=== PATIENT | female | born 1950 | race Caucasian/White ===

== ENCOUNTER 2016-11-11 20:02 | Emergency (ER) | payer MEDICARE, MEDICAID ==
[~2016-11-11] VITALS: Ht 157.5 cm; Wt 77.3 kg
[~2016-11-11 20:02] MED LIST: ASPIRIN 81M81 MG/TA2 PO; B-121000 MCG PO; BENADRYL25 M2 PO; BENTYL 10MG10 MG/CAP PO; BUSPAR10 MG PO; CEFTIN 250250 MG/TAB PO; COREG 3.123.125 MG/T PO; COUMADIN 1010 MG/TAB PO; COUMADIN 5MG5 MG/TAB PO; FLOMAX 0.40.4 MG/CAP PO; IBU800 M1 PO; IPRATROPIUM BROM3 M1 IH; MULTI VITAMINS1 TAB PO; MULTIPLE VITAMI1 TA5 PO; NICODERM C14 MG/PATC TD; NORCO 325 MG-51 TAB PO; PATADAY 2.5 ML2.5 ML OU; PLAVIX 75MG TAB75 MG PO; PRINIVIL2.5 MG PO; PROTONIX 40MG T40 MG PO; PROZAC40 MG PO; SENNO8.6 MG PO; TEARS-ARTIFICIA15 ML OP; TYLENOL 325MG325 MG PO; TYLENOL 500MG500 MG PO; WELLBUTRIN XL300 M1 PO; XYZAL5 MG PO; ZITHROMAX 250M250 MG PO; ZOCOR 40MG40 MG PO; ZOFRAN 4MG T4 MG/TAB PO
[2016-11-11 20:07] VITALS: BP 143/70; PULSE 73; TEMP 97.4
[2016-11-11] MEDS ORDERED: SARAFEM20 M1 PO (20:39)
[2016-11-11] MEDS ORDERED: SENOKOT S 50 MG1 TAB PO (20:41)
== END 2016-11-11 21:15 | disposition home or self-care (01) ==
LOC: COL.ER 20:02
DX: S09.90XA Unspecified injury of head, initial encounter (principal); W07.XXXA Fall from chair, initial encounter; Z79.01 Long term (current) use of anticoagulants

== ENCOUNTER → 2016-11-17 | Outpatient (CLI) | payer MEDICARE, MEDICAID ==
[~2016-11-17] MED LIST changes: +CORRECTIVE LAXAT5 MG PO; +GERI-TUSSI100 MG/5 M PEG; +MELATONIN5 M1 SL; +SARAFEM20 M1 PO; +SENOKOT S 50 MG1 TAB PO
== END ==
LOC: ZCOL.LAB 16:52
DX: F41.1 Generalized anxiety disorder (principal)

== ENCOUNTER → 2017-04-19 | Outpatient (CLI) | payer MEDICARE, MEDICAID ==
[2017-04-19 20:20] LABS: HYALINE CAST >12 /lpf; PH 5 (5-8); URINE APPEARANCE Cloudy; URINE BACTERIA Many /hpf; URINE BILIRUBIN Negative (NEGATIVE); URINE BLOOD Negative (NEGATIVE); URINE COLOR Amber; URINE GLUCOSE Negative (NEGATIVE); URINE KETONE Trace (NEGATIVE); URINE UROBILINOGEN Negative (NEGATIVE); URINE WBC >50 /hpf
== END ==
LOC: ZCOL.LAB 19:17
PROVIDERS: Internal Medicine
DX: N39.0 Urinary tract infection, site not specified (principal)

== ENCOUNTER → 2017-04-25 | Outpatient (CLI) | payer MEDICARE, MEDICAID ==
[2017-04-25 15:24] LABS: PH 5 (5-8); SQUAMOUS EPITHELIAL 0-2 /hpf; URINE APPEARANCE Hazy; URINE BACTERIA Many /hpf; URINE BILIRUBIN Negative (NEGATIVE); URINE BLOOD Negative (NEGATIVE); URINE COLOR Amber; URINE GLUCOSE Negative (NEGATIVE); URINE KETONE Negative (NEGATIVE); URINE UROBILINOGEN Negative (NEGATIVE); URINE WBC 20-50 /hpf
== END ==
LOC: ZCOL.LAB 12:48
PROVIDERS: Internal Medicine
DX: N39.0 Urinary tract infection, site not specified (principal)

== ENCOUNTER → 2017-05-05 | Outpatient (CLI) | payer MEDICARE, MEDICAID ==
[2017-05-05 12:42] LABS: INR 2.7 (0.8-3.0); PROTHROMBIN TIME 31.5 SECONDS (9.7-12.8)
== END ==
LOC: ZCOL.LAB 12:06
PROVIDERS: Internal Medicine
DX: I48.2 Chronic atrial fibrillation (principal)

== ENCOUNTER 2017-05-11 17:46 | Emergency (ER) | payer MEDICARE, MEDICAID ==
[~2017-05-11] VITALS: Ht 160 cm; Wt 79.5 kg
[~2017-05-11 17:46] MED LIST changes: -CORRECTIVE LAXAT5 MG PO; -GERI-TUSSI100 MG/5 M PEG; -MELATONIN5 M1 SL
[2017-05-11 17:49] VITALS: TEMP 99.1
[2017-05-11 18:26] LABS: HEMATOCRIT 38.3 % (37.0-47.0); HEMOGLOBIN 12.5 g/dl (12.5-16.0)
[2017-05-11 18:29] LABS: INR 2.3 (0.8-3.0); PROTHROMBIN TIME 26.1 SECONDS (9.7-12.8)
[2017-05-11 18:31] LABS: PARTIAL THROMBOPLASTIN TIME 39.7 SECONDS (26.0-37.0)
[2017-05-11] MEDS ORDERED: MELATONIN5 M1 SL (18:38)
[2017-05-11] MEDS ORDERED: ZITHROMAX 250M250 MG PO (18:40)
[2017-05-11] MEDS ORDERED: CORRECTIVE LAXAT5 MG PO (18:43)
[2017-05-11] MEDS ORDERED: BENADRYL25 M2 PO (18:44)
[2017-05-11] MEDS ORDERED: GERI-TUSSI100 MG/5 M PEG (18:44)
[2017-05-11 20:20] VITALS: BP 158/95; PULSE 92
== END 2017-05-11 20:20 | disposition home or self-care (01) ==
LOC: COL.ER 17:46
PROVIDERS: Physician Assistant
DX: S09.90XA Unspecified injury of head, initial encounter (principal); S00.03XA Contusion of scalp, initial encounter; S39.012A Strain of muscle, fascia and tendon of lower back, initial encounter; Y04.2XXA Assault by strike against or bumped into by another person, initial encounter; Y92.129 Unspecified place in nursing home as the place of occurrence of the external cause; I10 Essential (primary) hypertension; Z86.73 Personal history of transient ischemic attack (TIA), and cerebral infarction without residual deficits; Z79.01 Long term (current) use of anticoagulants

== ENCOUNTER → 2017-06-30 | Outpatient (CLI) | payer MEDICARE, MEDICAID ==
[~2017-06-30] MED LIST changes: +CORRECTIVE LAXAT5 MG PO; +GERI-TUSSI100 MG/5 M PEG; +MELATONIN5 M1 SL
[2017-06-30 11:24] LABS: BASO # 0.1 (0.0-0.2); BASO % 1.7 % (0.0-2.0); EOS # 0.2 (0.0-0.7); EOS % 4.1 % (0-4.0); GRAN # 3.1 (1.4-6.5); GRAN % 52.6 % (42.2-75.2); HEMATOCRIT 39.4 % (37.0-47.0); HEMOGLOBIN 12.7 g/dl (12.5-16.0); LYMPH # 2.1 (1.2-3.4); LYMPH % 34.7 % (20.0-51.0); MEAN CELL VOLUME 84 fl (80.0-100.0); MEAN CORPUSCULAR HEMOGLOBIN 27 pg (27.0-31.0); MEAN CORPUSCULAR HGB CONC 32 g/dl (33.0-37.0); MEAN PLATELET VOLUME 10.4 fl (7.4-10.4); MONO # 0.4 (0.1-0.6); MONO % 6.6 % (1.7-9.3); PLATELET COUNT 206 K/mm3 (130-400); RED BLOOD COUNT 4.68 M/mm3 (4.10-5.30); REDCELL DISTRIBUTION WIDTH-CV 14.7 % (11.5-14.5); WHITE BLOOD COUNT 5.9 K/mm3 (4.8-10.8)
[2017-06-30 11:33] LABS: ADJUSTED CALCIUM 9.5 mg/dL (8.4-10.2); ALBUMIN 3.8 gm/dL (3.5-5.0); BILIRUBIN,TOTAL 0.6 mg/dL (0.0-1.0); CALCIUM 9.3 mg/dL (8.4-10.2); CREATININE, serum 0.55 mg/dL (0.52-1.25); POTASSIUM 4.1 mmol/L (3.4-5.0)
== END ==
LOC: ZCOL.LAB 11:15
PROVIDERS: Internal Medicine
DX: I48.2 Chronic atrial fibrillation (principal); Z91.81 History of falling; Z79.01 Long term (current) use of anticoagulants

== ENCOUNTER → 2017-09-05 | Outpatient (CLI) | payer MEDICARE, MEDICAID ==
[2017-09-05 11:40] LABS: CHOLESTEROL RISK RATIO 3.1
== END ==
LOC: ZCOL.LAB 11:06
PROVIDERS: Internal Medicine
DX: E78.00 Pure hypercholesterolemia, unspecified (principal)

== ENCOUNTER → 2018-09-05 | Outpatient (CLI) | payer MEDICARE, MEDICAID ==
[2018-09-05 11:10] LABS: CHOLESTEROL RISK RATIO 3.7
== END ==
LOC: COL.LAB 09:54
PROVIDERS: Internal Medicine
DX: M62.81 Muscle weakness (generalized) (principal)

== ENCOUNTER → 2019-01-02 | Outpatient (CLI) | payer MEDICARE, MEDICAID ==
[2019-01-02 20:25] LABS: BILIRUBIN,TOTAL 0.3 mg/dL (0.0-1.0); CALCIUM 9.4 mg/dL (8.4-10.2); CREATININE, serum 0.59 mg/dL (0.52-1.25); POTASSIUM 5.3 mmol/L (3.4-5.0); TOTAL PROTEIN 6.8 gm/dL (6.4-8.2)
[2019-01-02 20:55] LABS: THYROID STIMULATING HORMONE 4.22 uIU/mL (0.465-4.680)
== END ==
LOC: ZCOL.LAB 17:26
PROVIDERS: Internal Medicine
DX: I48.2 Chronic atrial fibrillation (principal); F32.9 Major depressive disorder, single episode, unspecified

== ENCOUNTER → 2019-02-18 | Outpatient (CLI) | payer MEDICARE, MEDICAID ==
[2019-02-18 21:14] LABS: CALCIUM 9.3 mg/dL (8.4-10.2); CREATININE, serum 0.64 (0.52-1.25); POTASSIUM 4.3 mmol/L (3.4-5.0)
== END ==
LOC: ZCOL.LAB 17:20
PROVIDERS: Internal Medicine
DX: I50.22 Chronic systolic (congestive) heart failure (principal)

== ENCOUNTER → 2019-09-03 | Outpatient (CLI) | payer MEDICARE, MEDICAID ==
[2019-09-03 13:49] LABS: CALCIUM 9.3 mg/dL (8.4-10.2); CREATININE, serum 0.54 (0.52-1.25); POTASSIUM 4.4 mmol/L (3.4-5.0)
[2019-09-03 14:00] LABS: BASO # 0.1 (0.0-0.2); BASO % 1.5 % (0.0-2.0); EOS # 0.2 (0.0-0.7); EOS % 2.4 % (0-4.0); GRAN # 3.7 (1.4-6.5); GRAN % 50.7 % (42.2-75.2); HEMATOCRIT 39.3 % (37.0-47.0); HEMOGLOBIN 12.6 g/dl (12.5-16.0); LYMPH # 2.8 (1.2-3.4); LYMPH % 38.2 % (20.0-51.0); MEAN CELL VOLUME 88 fl (80.0-100.0); MEAN CORPUSCULAR HEMOGLOBIN 28 pg (27.0-31.0); MEAN CORPUSCULAR HGB CONC 32 g/dl (33.0-37.0); MEAN PLATELET VOLUME 10.4 fl (7.4-10.4); MONO # 0.5 (0.1-0.6); MONO % 6.7 % (1.7-9.3); PLATELET COUNT 253 K/mm3 (130-400); RED BLOOD COUNT 4.48 M/mm3 (4.10-5.30); REDCELL DISTRIBUTION WIDTH-CV 14.1 % (11.5-14.5)
== END ==
LOC: ZCOL.LAB 12:31
PROVIDERS: Internal Medicine
DX: I50.9 Heart failure, unspecified (principal)

== ENCOUNTER → 2020-01-28 | Outpatient (CLI) | payer MEDICARE, MEDICAID ==
[2020-01-28 15:46] LABS: CALCIUM 9.2 mg/dL (8.4-10.2); CREATININE, serum 0.54 (0.52-1.25); POTASSIUM 4.6 mmol/L (3.4-5.0)
== END ==
LOC: ZCOL.LAB 10:16
PROVIDERS: Internal Medicine
DX: I11.0 Hypertensive heart disease with heart failure (principal)

== ENCOUNTER → 2020-04-24 | Outpatient (CLI) | payer MEDICARE, MEDICAID ==
[2020-04-24 14:20] LABS: CHOLESTEROL RISK RATIO 2.9
== END ==
LOC: ZCOL.LAB 13:56
PROVIDERS: Internal Medicine
DX: I25.10 Atherosclerotic heart disease of native coronary artery without angina pectoris (principal)

== ENCOUNTER → 2020-10-13 | Outpatient (CLI) | payer MEDICARE, MEDICAID ==
[2020-10-13 17:37] LABS: COLLECTION METHOD CLEAN CATCH
[2020-10-13 17:46] LABS: PH 6 (5-8); SQUAMOUS EPITHELIAL 0-2 /hpf; URINE APPEARANCE Hazy; URINE BACTERIA Moderate /hpf; URINE BILIRUBIN Negative (NEGATIVE); URINE BLOOD Negative (NEGATIVE); URINE COLOR Yellow; URINE GLUCOSE Negative (NEGATIVE); URINE KETONE Negative (NEGATIVE); URINE LEUKOCYTE ESTERASE 2+ (NEGATIVE); URINE NITRATE Positive (NEGATIVE); URINE PROTEIN(semi-quant) Negative (NEGATIVE); URINE RBC 0-2 /hpf; URINE UROBILINOGEN Negative (NEGATIVE); URINE WBC 20-50 /hpf
== END ==
LOC: ZCOL.LAB 17:34
PROVIDERS: Internal Medicine
DX: N39.0 Urinary tract infection, site not specified (principal)

== ENCOUNTER → 2020-10-28 | Outpatient (CLI) | payer MEDICARE, MEDICAID ==
[2020-10-28 15:37] LABS: BASO # 0.1 (0.0-0.2); BASO % 1.7 % (0.0-2.0); EOS # 0.2 (0.0-0.7); EOS % 2.5 % (0-4.0); GRAN % 51.6 % (42.2-75.2); HEMATOCRIT 41.4 % (37.0-47.0); HEMOGLOBIN 13.1 g/dl (12.5-16.0); LYMPH % 38.7 % (20.0-51.0); MEAN CELL VOLUME 89 fl (80.0-100.0); MEAN CORPUSCULAR HEMOGLOBIN 28 pg (27.0-31.0); MEAN CORPUSCULAR HGB CONC 32 g/dl (33.0-37.0); MEAN PLATELET VOLUME 11.3 fl (7.4-10.4); MONO # 0.4 (0.1-0.6); MONO % 5.4 % (1.7-9.3); PLATELET COUNT 235 K/mm3 (130-400); RED BLOOD COUNT 4.65 M/mm3 (4.10-5.30); REDCELL DISTRIBUTION WIDTH-CV 14.4 % (11.5-14.5)
[2020-10-28 15:51] LABS: ALBUMIN 3.7 gm/dL (3.5-5.0); BILIRUBIN,TOTAL 0.4 mg/dL (0.0-1.0); CALCIUM 9.2 mg/dL (8.4-10.2); CHOLESTEROL RISK RATIO 2.9; CREATININE, serum 0.52 (0.52-1.25); POTASSIUM 4.7 mmol/L (3.4-5.0); TOTAL PROTEIN 6.2 gm/dL (6.4-8.2)
[2020-10-28 16:21] LABS: THYROID STIMULATING HORMONE 3.04 uIU/mL (0.465-4.680)
== END ==
LOC: ZCOL.LAB 12:22
PROVIDERS: Internal Medicine
DX: E78.5 Hyperlipidemia, unspecified (principal)

== ENCOUNTER → 2021-05-03 | Outpatient (CLI) | payer MEDICARE, MEDICAID ==
[2021-05-03 16:34] LABS: BASO # 0.1 (0.0-0.2); BASO % 0.9 % (0.0-2.0); EOS # 0.2 (0.0-0.7); EOS % 2.2 % (0-4.0); GRAN # 4.3 (1.4-6.5); GRAN % 58.3 % (42.2-75.2); LYMPH # 2.4 (1.2-3.4); LYMPH % 32.4 % (20.0-51.0); MEAN CELL VOLUME 87 fl (80.0-100.0); MEAN CORPUSCULAR HEMOGLOBIN 27 pg (27.0-31.0); MEAN CORPUSCULAR HGB CONC 31 g/dl (33.0-37.0); MEAN PLATELET VOLUME 10.8 fl (7.4-10.4); MONO # 0.4 (0.1-0.6); MONO % 5.8 % (1.7-9.3); PLATELET COUNT 253 K/mm3 (130-400); RED BLOOD COUNT 4.04 M/mm3 (4.10-5.30); REDCELL DISTRIBUTION WIDTH-CV 14.4 % (11.5-14.5)
[2021-05-03 16:36] LABS: HEMATOCRIT 35.2 % (37.0-47.0)
== END ==
LOC: ZCOL.LAB 16:22
PROVIDERS: Internal Medicine
DX: E78.5 Hyperlipidemia, unspecified (principal)

== ENCOUNTER → 2021-05-11 | Outpatient (CLI) | payer MEDICARE, MEDICAID | LOC: ZCOL.LAB 19:25 | DX: R19.5 Other fecal abnormalities (principal) ==

== ENCOUNTER → 2021-05-17 | Outpatient (CLI) | payer MEDICARE, MEDICAID | LOC: ZCOL.LAB 15:46 | DX: R19.5 Other fecal abnormalities (principal) ==

== ENCOUNTER → 2021-06-23 | Outpatient (CLI) | payer MEDICARE, MEDICAID | LOC: ZCOL.LAB 13:02 | DX: D50.9 Iron deficiency anemia, unspecified (principal) ==

== ENCOUNTER → 2021-11-01 | Outpatient (CLI) | payer MEDICARE, MEDICAID ==
[2021-11-01 15:40] LABS: BASO # 0.1 K/mm3 (0.0-0.2); EOS # 0.1 K/mm3 (0.0-0.7); EOS % 2.1 % (0.0-4.0); GRAN # 3.3 K/mm3 (1.4-6.5); GRAN % 53.3 % (42.2-75.2); HEMATOCRIT 38.1 % (37.0-47.0); HEMOGLOBIN 11.9 g/dl (12.5-16.0); LYMPH # 2.2 K/mm3 (1.2-3.4); LYMPH % 35.7 % (20.0-51.0); MEAN CELL VOLUME 89 fl (80.0-100.0); MEAN CORPUSCULAR HEMOGLOBIN 28 pg (27-31); MEAN CORPUSCULAR HGB CONC 31 g/dl (33.0-37.0); MEAN PLATELET VOLUME 11.2 fl (7.4-10.4); MONO # 0.4 K/mm3 (0.1-0.6); MONO % 6.6 % (1.7-9.3); PLATELET COUNT 168 K/mm3 (130-400); RED BLOOD COUNT 4.28 M/mm3 (4.10-5.30); REDCELL DISTRIBUTION WIDTH-CV 14.7 % (11.5-14.5)
[2021-11-01 16:01] LABS: ALBUMIN 3.2 gm/dL (3.4-4.8); BILIRUBIN,TOTAL 0.4 mg/dL (0.2-1.2); CALCIUM 8.4 mg/dL (8.4-10.2); CHOLESTEROL RISK RATIO 3.3; CREATININE, serum 0.63 mg/dL (0.57-1.11); POTASSIUM 4.7 mmol/L (3.5-4.5); TOTAL PROTEIN 5.6 gm/dL (6.2-8.1)
[2021-11-01 16:21] LABS: THYROID STIMULATING HORMONE 1.876 uIU/mL (0.350-4.940)
== END ==
LOC: ZCOL.LAB 14:40
PROVIDERS: Internal Medicine
DX: E11.9 Type 2 diabetes mellitus without complications (principal); I11.0 Hypertensive heart disease with heart failure; I48.0 Paroxysmal atrial fibrillation; I50.9 Heart failure, unspecified

== ENCOUNTER → 2022-01-21 | Outpatient (CLI) | payer MEDICARE, MEDICAID ==
[2022-01-21 15:30] LABS: COLLECTION METHOD CLEAN CATCH
[2022-01-21 15:39] LABS: PH 5 (5-8); SQUAMOUS EPITHELIAL None Seen /hpf (0-10); URINE APPEARANCE Hazy (CLEAR/HAZY); URINE BACTERIA Rare /hpf (NONE SEEN); URINE BILIRUBIN Negative (NEGATIVE); URINE BLOOD Negative (NEGATIVE); URINE COLOR Yellow (YELLOW); URINE GLUCOSE Negative (NEGATIVE); URINE KETONE Negative (NEGATIVE); URINE LEUKOCYTE ESTERASE 2+ (NEGATIVE); URINE NITRATE Positive (NEGATIVE); URINE PROTEIN(semi-quant) Negative (NEGATIVE); URINE RBC 0-2 /hpf (0-2); URINE UROBILINOGEN Negative (NEGATIVE)
== END ==
LOC: ZCOL.LAB 15:00
PROVIDERS: Internal Medicine
DX: N39.0 Urinary tract infection, site not specified (principal)

== ENCOUNTER → 2022-03-21 | Outpatient (CLI) | payer MEDICARE, MEDICAID ==
[2022-03-21 15:04] LABS: HEMOGLOBIN 13.6 g/dl (12.5-16.0); MEAN CELL VOLUME 90 fl (80.0-100.0); MEAN CORPUSCULAR HEMOGLOBIN 29 pg (27-31); MEAN CORPUSCULAR HGB CONC 32 g/dl (33.0-37.0); MEAN PLATELET VOLUME 10.7 fl (7.4-10.4); PLATELET COUNT 214 K/mm3 (130-400); RED BLOOD COUNT 4.76 M/mm3 (4.10-5.30); REDCELL DISTRIBUTION WIDTH-CV 14.5 % (11.5-14.5)
[2022-03-21 15:11] LABS: INR 1.5 (0.8-3.0); PROTHROMBIN TIME 17.3 SECONDS (9.7-12.8)
== END ==
LOC: ZCOL.LAB 13:17
PROVIDERS: Internal Medicine
DX: Z79.899 Other long term (current) drug therapy (principal); R79.1 Abnormal coagulation profile

== ENCOUNTER → 2022-04-08 | Outpatient (CLI) | payer MEDICARE, MEDICAID ==
[2022-04-08 09:22] LABS: INR 1.6 (0.8-3.0); PROTHROMBIN TIME 18.2 SECONDS (9.7-12.8)
== END ==
LOC: ZCOL.LAB 08:30
PROVIDERS: Internal Medicine
DX: R79.1 Abnormal coagulation profile (principal)

== ENCOUNTER → 2023-01-26 | Outpatient (CLI) | payer MEDICARE, MEDICAID ==
[2023-01-26 14:10] LABS: COLLECTION METHOD IN
[2023-01-26 14:32] LABS: MUCOUS Present (NOT PRESENT); SQUAMOUS EPITHELIAL 0-2 /hpf (0-10); URINE BACTERIA Many /hpf (NONE SEEN); URINE RBC 0-2 /hpf (0-2); URINE WBC 20-50 /hpf (0-2)
[2023-01-26 14:34] LABS: URINE APPEARANCE Cloudy (CLEAR/HAZY); URINE COLOR Yellow (YELLOW); URINE GLUCOSE Negative (NEGATIVE); URINE KETONE TRACE (NEGATIVE); URINE PROTEIN(semi-quant) TRACE (NEGATIVE); URINE UROBILINOGEN 0.2 (NEGATIVE)
[2023-01-26 14:35] LABS: URINE BLOOD TRACE-INTACT (NEGATIVE); URINE NITRATE Positive (NEGATIVE)
== END ==
LOC: ZCOL.LAB 14:08
PROVIDERS: Internal Medicine
DX: N39.0 Urinary tract infection, site not specified (principal)

== ENCOUNTER → 2023-07-23 | Outpatient (CLI) | payer MEDICARE, MEDICAID ==
[2023-07-23 12:33] LABS: BASO # 0.1 K/mm3 (0.0-0.2); BASO % 2.1 % (0.0-2.0); EOS # 0.4 K/mm3 (0.0-0.7); EOS % 6.4 % (0.0-4.0); GRAN # 3.2 K/mm3 (1.4-6.5); GRAN % 47.8 % (42.2-75.2); HEMATOCRIT 34.4 % (37.0-47.0); HEMOGLOBIN 10.7 g/dl (12.5-16.0); LYMPH # 2.4 K/mm3 (1.2-3.4); LYMPH % 36.4 % (20.0-51.0); MEAN CELL VOLUME 84 fl (80.0-100.0); MEAN CORPUSCULAR HEMOGLOBIN 26 pg (27-31); MEAN CORPUSCULAR HGB CONC 31 g/dl (33.0-37.0); MEAN PLATELET VOLUME 10.4 fl (7.4-10.4); MONO # 0.5 K/mm3 (0.1-0.6); MONO % 7.1 % (1.7-9.3); PLATELET COUNT 186 K/mm3 (130-400); RED BLOOD COUNT 4.12 M/mm3 (4.10-5.30)
[2023-07-23 12:51] LABS: ALBUMIN 3.3 gm/dL (3.4-4.8); BILIRUBIN,TOTAL 0.3 mg/dL (0.2-1.2); CALCIUM 9.1 mg/dL (8.4-10.2); CREATININE, serum 0.67 mg/dL (0.57-1.11); POTASSIUM 4.1 mmol/L (3.5-4.5); TOTAL PROTEIN 5.7 gm/dL (6.2-8.1)
[2023-07-23 13:11] LABS: THYROID STIMULATING HORMONE 2.946 uIU/mL (0.350-4.940)
== END ==
LOC: COL.LAB 12:15
PROVIDERS: Family Medicine
DX: D50.9 Iron deficiency anemia, unspecified (principal); E78.5 Hyperlipidemia, unspecified; I48.0 Paroxysmal atrial fibrillation; I50.22 Chronic systolic (congestive) heart failure; G30.1 Alzheimer's disease with late onset; E03.9 Hypothyroidism, unspecified

== ENCOUNTER 2023-11-25 17:42 | Emergency (ER) | payer MEDICARE, MEDICAID ==
[~2023-11-25] VITALS: Ht 157.5 cm; Wt 59.1 kg
[2023-11-25 17:47] VITALS: TEMP 98.1
[2023-11-25] MEDS ORDERED: methylPREDNISolone Sod Succ 125 MG/2 ML VIAL IV ONE (18:00)
[2023-11-25] MEDS ORDERED: Albuterol/Ipratropium 3 MG-0.5 MG/3 ML Neb Soln IH ONE (18:00)
[2023-11-25 18:22] LABS: BASO % 0.3 % (0.0-2.0); GRAN # 11.3 K/mm3 (1.4-6.5); GRAN % 79.1 % (42.2-75.2); LYMPH # 1.8 K/mm3 (1.2-3.4); LYMPH % 12.4 % (20.0-51.0); MEAN CELL VOLUME 90 fl (80.0-100.0); MEAN CORPUSCULAR HGB CONC 31 g/dl (33.0-37.0); MEAN PLATELET VOLUME 11.1 fl (7.4-10.4); MONO # 1.1 K/mm3 (0.1-0.6); MONO % 7.7 % (1.7-9.3); PLATELET COUNT 267 K/mm3 (130-400); RED BLOOD COUNT 3.47 M/mm3 (4.10-5.30); REDCELL DISTRIBUTION WIDTH-CV 16.3 % (11.5-14.5)
[2023-11-25 18:29] LABS: HEMATOCRIT 31.1 % (37.0-47.0); HEMOGLOBIN 9.7 g/dl (12.5-16.0); MEAN CORPUSCULAR HEMOGLOBIN 28 pg (27-31)
[2023-11-25 18:41] LABS: ALBUMIN 3.6 gm/dL (3.4-4.8); BILIRUBIN,TOTAL 0.6 mg/dL (0.2-1.2); CALCIUM 9.4 mg/dL (8.4-10.2); CREATININE, serum 1.19 mg/dL (0.57-1.11); POTASSIUM 4.9 mmol/L (3.5-4.5); TOTAL PROTEIN 6.7 gm/dL (6.2-8.1)
[2023-11-25 19:07] LABS: TROPONIN-I 30.786 ng/mL (0.00-0.033)
[2023-11-25] MEDS ORDERED: NS 60 ML IV ONE (19:39)
[2023-11-25] MEDS ORDERED: Iohexol 300 - 100 ML VIAL IV ONE (19:39)
[2023-11-25] MEDS ORDERED: Heparin 5,000 UNITS/ML 1 ML VIAL IV PRN (20:30)
[2023-11-25] MEDS ORDERED: Heparin/D5W 250 ML IV SCH (20:30)
[2023-11-25] MEDS ORDERED: Heparin 5,000 UNITS/ML 1 ML VIAL IV ONE (20:30)
[2023-11-25] MEDS ORDERED: Doxycycline Monohydrate 100 MG CAP PO ONE (21:00)
[2023-11-25] MEDS ORDERED: cefTRIAXone 1 G in Water For Injection,Sterile 10 ML IV ONE (21:00)
[2023-11-25 21:12] LABS: INR 1.4 (0.8-3.0); PROTHROMBIN TIME 14.9 SECONDS (9.7-12.8)
[2023-11-25 21:15] LABS: PARTIAL THROMBOPLASTIN TIME 31.7 SECONDS (26.0-37.0)
[2023-11-25 21:47] VITALS: BP 124/72; PULSE 93
== END 2023-11-25 22:05 | disposition short-term general hospital (02) ==
LOC: COL.ER 17:42
PROVIDERS: Emergency Medicine
DX: I21.4 Non-ST elevation (NSTEMI) myocardial infarction (principal); R65.10 Systemic inflammatory response syndrome (SIRS) of non-infectious origin without acute organ dysfunction; I50.9 Heart failure, unspecified; D64.9 Anemia, unspecified; J96.90 Respiratory failure, unspecified, unspecified whether with hypoxia or hypercapnia; Z87.891 Personal history of nicotine dependence
CPT/HCPCS: J0696; J1644; J2930; Q9967